=== PATIENT | male | born 2000 | race Two or more races ===

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

== ENCOUNTER 2022-01-19 03:53 | Inpatient (IN) | payer MEDICAID, SELFPAY ==
[2022-01-19 03:55] VITALS: BP 161/84; PULSE 91; RESP 20; TEMP 36.4; O2SAT 98; BMI 25.0
--- NOTE | 2022-01-19 04:10 | W.ED.PSYCHS ---
HPI - Psych General: Chief Complaint: Psychiatric Symptoms Stated Complaint: HI Time Seen by Provider: 01/19/22 04:05 History of Present Illness: 21-year-old male autistic spectrum disorder developmentally delayed patient with a history of schizophrenia. He reports feelings this morning wanting to kill his family because they treat me like garbage there is no specific plan to do so. The patient is here willingly. He denies any current illness. He smiles and laughs on interview. complaint: other Onset (ago): hour(s) Duration: constant History of same: Yes Relieving factors: none Exacerbating factors: none Associated symptoms: Reports homicidal ideation; Deny auditory hallucinations, visual hallucinations or suicidal ideation Review of Systems Const: Denies: fever(s) ENMT: Denies: throat pain Card: Denies: chest pain Resp: Denies: dyspnea, productive cough or non-productive cough GI: Denies: abdominal pain, nausea or vomiting Skin/Breast: Denies: rash Neuro: Denies: headache(s) Psych: Reports: homicidal ideation; Denies: visual hallucinations, auditory hallucinations or suicidal ideation PFS ED PFSH: Medical History ADHD Mild intellectual disability Psychiatric care Psychiatric illness Schizophrenia Surgical History No significant past surgical history Social History Smoking and tobacco status: current every day smoker cigarettes Years cigarettes smoked: 5 [ Other cigarette details: couple cigs once in a while] Quit status (tobacco): has tried quititng Number of times tried to quit tobacco: 8 Second hand smoke exposure: No Smoking risk assessment/counseling performed?: No Alcohol intake: never Desire information about alcohol rehabilitation?: No Counseling given: No Physical Exam Const: GENERAL APPEARANCE: cooperative; not ill appearing and not frail appearing HENMT: COMMON NORMALS: normocephalic and Normal external nose present HEAD & SCALP: normocephalic FACE & SINUS: normal facial exam and face symmetric NOSE: Normal external nose present THROAT: posterior oropharynx normal Eye: COMMON NORMALS: Equal, round and reactive pupils present and EOMs intact bilaterally PUPIL: Yes Equal, round and reactive pupils present Neck/C-Spine: GENERAL: Yes trachea midline Chest: CHEST: Yes Symmetrical chest wall rise Resp: COMMON NORMALS: normal respiratory effort, No use of accessory muscles and clear to auscultation bilaterally AUSCULTATION: clear to auscultation bilaterally Cardio: COMMON NORMALS: regular rate and regular rhythm RATE: regular rate RHYTHM: regular rhythm GI: COMMON NORMALS: Normal to inspection, nondistended, normoactive bowel sounds present, Soft to palpation and non-tender PALPATION: Yes Soft to palpation : COMMON NORMALS: Yes no CVA tenderness BLADDER/KIDNEY EXAM: Yes no CVA tenderness Back/Pelvis: COMMON NORMALS: no CVA tenderness Extremity: COMMON NORMALS: normal to inspection Neuro: TOBIAS COMA SCALE: document GCS findings Tobias coma scale eye opening: Spontaneous [place] coma scale verbal response: Orientated [place] coma scale motor response: Obey commands [place] coma scale total score: 15 Psych: COMMON NORMALS: cooperative and speech normal ATTITUDE: Yes engaged ACTIVITY/MOTOR BEHAVIOR: Yes fidgeting and Yes restless SPEECH: Yes normal speech MOOD & AFFECT: Yes elevated mood Skin: COMMON NORMALS: no wounds Course Consultations: Consultation #1: Juan Time: 05:59 Vital Signs: Vital signs: Vital Signs Temperature 97.5 F L 01/19/22 03:55 Pulse Rate 91 01/19/22 03:55 Respiratory Rate 20 H 01/19/22 03:55 Blood Pressure 161/84 01/19/22 03:55 Pulse Oximetry 98 01/19/22 03:55 [facility] - Psych Medical Decision Making Spoke with psychiatry. The patient is medically stable. Labs are normal. There is no intoxication. Will admit. He will go to the Neuropsych Unit. He is willing to be admitted, and therefore will not be placed under hold. Lab Data : 01/19/22 04:03 01/19/22 04:03 Laboratory Results WBC 6.2 10^3/uL (4.5-13.0) 01/19/22 04:03 RBC 5.29 10^6/uL (4.1-5.3) 01/19/22 04:03 Hgb 15.3 g/dL (11.7-16.6) 01/19/22 04:03 Hct 45.5 % (42.0-52.0) 01/19/22 04:03 MCV 86.0 fl (80-94) 01/19/22 04:03 MCH 28.9 pg (28.0-34.0) 01/19/22 04:03 MCHC 33.6 g/dL (30.0-36.0) 01/19/22 04:03 RDW 11.9 % (12.1-15.1) L 01/19/22 04:03 Plt Count 234 10^3/cmm (130-400) 01/19/22 04:03 MPV 9.7 fL (7.4-10.4) 01/19/22 04:03 Neut % (Auto) 55.8 % 01/19/22 04:03 Lymph % (Auto) 32.0 % 01/19/22 04:03 [place] % (Auto) 9.4 % 01/19/22 04:03 Eos % (Auto) 2.4 % 01/19/22 04:03 Baso % (Auto) 0.2 % 01/19/22 04:03 Neut # (Auto) 3.45 10^3/uL (1.8-8.0) 01/19/22 04:03 Lymph # (Auto) 2.0 10^3/uL (1.5-6.5) 01/19/22 04:03 [place] # (Auto) 0.6 10^3/uL (0.2-0.9) 01/19/22 04:03 Eos # (Auto) 0.2 10^3/uL (0.0-0.8) 01/19/22 04:03 Baso # (Auto) 0.0 10^3/uL (0.0-0.1) 01/19/22 04:03 Nucleated RBC % (auto) 0 % 01/19/22 04:03 Nucleated RBCs # 0.0 /100WBC 01/19/22 04:03 Sodium 139 mmol/L (136-145) 01/19/22 04:03 Potassium 4.0 mmol/L (3.5-5.1) 01/19/22 04:03 Chloride 103 mmol/L (98-107) 01/19/22 04:03 Carbon Dioxide 25 mmol/L (22-29) 01/19/22 04:03 Anion Gap 15.0 (5-19) 01/19/22 04:03 BUN 12 mg/dL (6-20) 01/19/22 04:03 Creatinine 0.8 mg/dL (0.7-1.2) 01/19/22 04:03 GFR Calculation 124.5 mL/min (90-130) 01/19/22 04:03 Glucose 93 mg/dL (65-115) 01/19/22 04:03 Calculated Osmolality 287 mOsm/kg (285-295) 01/19/22 04:03 Calcium 9.4 mg/dL (8.5-10.5) 01/19/22 04:03 Total Bilirubin 0.6 mg/dL (0.15-1.2) 01/19/22 04:03 AST 19 U/L (0-40) 01/19/22 04:03 ALT 11 U/L (0-41) 01/19/22 04:03 Alkaline Phosphatase 79 U/L (40-130) 01/19/22 04:03 Total Protein 7.8 g/dL (6.6-8.7) 01/19/22 04:03 Albumin 5.0 g/dL (3.5-5.2) 01/19/22 04:03 Globulin 2.8 g/dL (1.3-4.6) 01/19/22 04:03 Urine Color Yellow (Yellow) 01/19/22 04:03 Urine Appearance Clear (CLEAR) 01/19/22 04:03 Urine pH 5 (5-7) 01/19/22 04:03 Ur Specific [place] 1.025 (1.005-1.030) 01/19/22 04:03 Urine Protein 1+ (Negative) H 01/19/22 04:03 Urine Glucose (UA) Norm (Normal) 01/19/22 04:03 Urine Ketones 1+ (Negative) H 01/19/22 04:03 Urine Blood Neg (Negative) 01/19/22 04:03 Urine Nitrate Negative (Negative) 01/19/22 04:03 Urine Bilirubin Neg (Negative) 01/19/22 04:03 Urine Urobilinogen 1 mg/dL (Negative) H 01/19/22 04:03 Ur Leukocyte Esterase Negative (Negative) 01/19/22 04:03 Urine RBC 0-4 /hpf (0-2) H 01/19/22 04:03 Urine WBC 0-4 /hpf (0-5) H 01/19/22 04:03 Ur Squamous Epith Cells 0-4 /hpf (0-5) H 01/19/22 04:03 Amorphous Sediment Not Reportable 01/19/22 04:03 Urine Bacteria Trace /hpf (NONE) 01/19/22 04:03 Urine Mucus 3+ /hpf 01/19/22 04:03 Salicylates < 0.3 mg/dL (3-10) L 01/19/22 04:03 Urine Opiates Screen Negative ng/mL (Negative) 01/19/22 04:03 Acetaminophen < 5.0 ug/mL (10-30) L 01/19/22 04:03 Ur Barbiturates Screen Negative ng/mL (Negative) 01/19/22 04:03 Ur Phencyclidine Scrn Negative ng/mL (Negative) 01/19/22 04:03 Ur Amphetamines Screen Negative ng/mL (Negative) 01/19/22 04:03 U Benzodiazepines Scrn Negative ng/mL (Negative) 01/19/22 04:03 Urine Cocaine Screen Negative ng/mL (Negative) 01/19/22 04:03 U Marijuana (THC) Screen Positive ng/mL (Negative) H 01/19/22 04:03 Ethyl Alcohol < 10 mg/dL (0-10) 01/19/22 04:03 Discharge Plan Discharge Patient Disposition: Admitted As Inpatient Clinical Impression: Homicidal ideation Condition: Stable Coding Level of Care Code ED Director Of Automation for Robert Cheema Exam Comprehensive
[2022-01-19 04:15] LABS: Basophils % 0.2 %; Eosinophils # 0.2 10^3/uL (0.0-0.8); Eosinophils % 2.4 %; Hematocrit 45.5 % (42.0-52.0); Hemoglobin 15.3 g/dL (11.7-16.6); Mean Corpuscular HGB Conc 33.6 g/dL (30.0-36.0); Mean Corpuscular Hemoglobin 28.9 pg (28.0-34.0); Mean Platelet Volume 9.7 fL (7.4-10.4); Monocytes # 0.6 10^3/uL (0.2-0.9); Monocytes % 9.4 %; Neutrophils # 3.45 10^3/uL (1.8-8.0); Neutrophils % 55.8 %; Nucleated Red Blood Cells % 0 %; Platelet Count 234 10^3/cmm (130-400); Red Blood Count 5.29 10^6/uL (4.1-5.3); Red Cell Distribution Width 11.9 % (12.1-15.1); White Blood Count 6.2 10^3/uL (4.5-13.0)
[2022-01-19 04:33] LABS: Acetaminophen < 5.0 ug/mL (10-30); Alanine Aminotransferase 11 U/L (0-41); Alcohol Level < 10 mg/dL (0-10); Alkaline Phosphatase 79 U/L (40-130); Aspartate Amino Transferase 19 U/L (0-40); Blood Urea Nitrogen 12 mg/dL (6-20); Calcium 9.4 mg/dL (8.5-10.5); Carbon Dioxide 25 mmol/L (22-29); Chloride 103 mmol/L (98-107); Globulin 2.8 g/dL (1.3-4.6); Glomerular Filtration Rate 124.5 mL/min (90-130); Glucose 93 mg/dL (65-115); Osmolality Calculated 287 mOsm/kg (285-295); Salicylate < 0.3 mg/dL (3-10); Sodium 139 mmol/L (136-145); Total Bilirubin 0.6 mg/dL (0.15-1.2); Total Protein 7.8 g/dL (6.6-8.7)
[2022-01-19 04:36] LABS: Add Urine Microscopic? YES; Bilirubin Urine Neg (Negative); Blood Urine Neg (Negative); Glucose Urine UA Norm (Normal); Ketones Urine 1+ (Negative); Leukocyte Esterase Urine Negative (Negative); Nitrate Urine Negative (Negative); Protein Urine 1+ (Negative); Specific Gravity, Urine 1.025 (1.005-1.030); Urine Appearance Clear (CLEAR); Urine Color Yellow (Yellow); Urobilinogen Urine 1 mg/dL (Negative); pH Urine 5 (5-7)
[2022-01-19 04:37] LABS: Add Urine Culture? No; Bacteria Urine TRACE /hpf; Mucus Urine 3+ /hpf; RBC Urine 0-4 /hpf (0-2); Squamous Epithelial Cell Urine 0-4 /hpf (0-5); WBC Urine 0-4 /hpf (0-5)
[2022-01-19 04:38] LABS: Amphetamines Screen Urine Negative (Negative); Barbiturates Screen Urine Negative (Negative); Benzodiazepines Screen Urine Negative (Negative); Cocaine Screen Urine Negative (Negative); Opiate Screen Urine Negative (Negative); PCP Screen Urine Negative (Negative); THC Screen Urine Positive (Negative)
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
[2022-01-19 07:30] VITALS: BP 129/74; PULSE 82; RESP 18; TEMP 36.6; O2SAT 96
--- NOTE | 2022-01-19 08:17 | PC.NURSE ---
Admission Assessment Patient presents with anxiety, frequently swinging his arms throughout assessment. Patient was calm, cooperative, and eager to talk. He states he is here because he had thoughts of killing his family because they are, mean to me and really rude. Patient denies any auditory or visual hallucinations at this time. He also denies any suicidal ideation. Patient states he drank alcohol once at 18, but has never drank any alcohol since then. He does admit to using marijuana currently on a daily basis. When asked how much he used daily he said, I don't know how much, but it's a lot! Patient also currently uses tobacco and states he smokes about one pack daily. Patient did say he felt anxious this morning, but didn't want to take any medications to help alleviate his symptoms. He states he still wants to kill his family and appears very emotional when speaking about it. Patient states he had a bowel movement yesterday. Patient has small rash on the knuckles of his left hand.
[2022-01-19] MEDS: ARIPiprazole 30 mg Tablet 15 MG PO (08:38)
[2022-01-19 14:00] VITALS: BP 119/68; PULSE 71; RESP 16; TEMP 36.7; O2SAT 96
[2022-01-19 20:07] VITALS: BP 140/82; PULSE 77; RESP 17; TEMP 36.4; O2SAT 96
[2022-01-19] MEDS: hyDROXYzine 25 mg Capsule 50 MG PO (21:12)
[2022-01-19] MEDS: trazodone 50 mg Tablet PO (21:13)
[2022-01-20 06:00] VITALS: BP 124/82; PULSE 80; RESP 16; TEMP 36.5; O2SAT 96
[2022-01-20] MEDS: ARIPiprazole 30 mg Tablet 15 MG PO (08:10)
[2022-01-20 14:00] VITALS: BP 132/70; PULSE 75; RESP 16; TEMP 36.9; O2SAT 95
[2022-01-20] MEDS: nicotine 2 mg Gum BUCCAL (16:08)
--- NOTE | 2022-01-20 17:03 | P.NPUPN_ITS ---
Subjective NPU Subjective: Patient presents today essentially unchanged and seen frolicking in the hallways. He continues reportedly has not spoken to his parents again referencing that they are mean to me. We discussed the fact that this seems to be more of a family dispute and that is unlikely make medication changes and also there are no alternative living arrangements that are available. We will work with the treatment team and his family possible discharge in the next 48 hours. Mental Status Exam MSE Comments: This is a slender olive skinned male in hospital scrubs with adequate grooming and eye contact. No abnormal movements except for mild psychomotor agitation. Cooperative with exam in no acute distress. Speech was normal rate and volume, with a mild speech impediment with R's, and some limited prosody and childlike delivery. Mood described as fine, affect congruent. Thought process organized. Thought contact: patient denies suicidal or homicidal ideation, there were no delusions reported or noted, patient denied auditory or visual hallucinations. Attention and concentration appeared intact and memory appeared unreliable but none were formally tested. Patient is alert and oriented times three. Insight and judgment appear limited versus impaired and impulse control appears limited.? Intellectual ability appears limited versus impaired. Vitals/I&O/Wt Last Vital Signs Temp 98.4 F 01/20/22 14:00 Pulse 75 01/20/22 14:00 Resp 16 01/20/22 14:00 BP 132/70 01/20/22 14:00 Pulse Ox 95 01/20/22 14:00 O2 Del Method 01/20/22 14:00 Weight last 48 hrs Weight 72.575 kg Data NPU : 01/19/22 04:03 01/19/22 04:03 A&P Assessment and plan (1) Homicidal ideation: Status: Acute (2) ADHD: Status: Acute (3) Mild intellectual disability: Status: Acute (4) Borderline intellectual functioning: Status: Acute (5) Autism spectrum disorder: Status: Acute (6) alcohol syndrome: Status: Acute Plan This is a 21-year-old male with a long history of alcohol syndrome intellectual difficulties, impulsivity and struggling to accept his lack of independence presents with reports of homicidal ideation but now appearing essentially stable. 1. Continue current medication. We will evaluate for need for changes. 2. Continue every 15 minute checks for safety. 3. Encourage individual, group milieu therapy. 4. We will work with family for appropriate discharge plans. Likely to be a short stay. Involuntary Hold Information 96 Hour Hold: 96 Hour Involuntary Admission: No 96 Hour Hold Ending Date: 09/02/21 96 Hour Hold Ending Time: 00:45 Attestations NPU Medical Necessity Statement*: Inpatient hospitalization is medically necessary and the clinically appropriate intervention at this time.? We will monitor medications and make changes as indicated. Likely likely stay 1-3 days. Coding Level of Care Code Acute Furnace Charging Machine Operator for g Fwd Diagnoses Homicidal ideation R45.850 ADHD F90.9 Mild intellectual disability F70 Borderline intellectual functioning R41.83 Autism spectrum disorder F84.0 alcohol syndrome Q86.0
[2022-01-20 20:03] VITALS: BP 112/63; PULSE 65; RESP 16; TEMP 36.8; O2SAT 98
[2022-01-21 06:00] VITALS: BP 119/80; PULSE 74; RESP 16; TEMP 36.7; O2SAT 99
[2022-01-21] MEDS: ARIPiprazole 30 mg Tablet 15 MG PO (08:04)
[2022-01-21 14:00] VITALS: BP 114/62; PULSE 70; RESP 18; TEMP 36.9; O2SAT 97
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
[2022-01-21 15:53] VITALS: BP 114/62; PULSE 70; RESP 18; TEMP 36.9; O2SAT 97
== END 2022-01-21 16:34 | disposition home or self-care (01) | DRG 884 ==
LOC: ER 06:00 → NP 06:09
PROVIDERS: Admitting Provider Psychiatry & Neurology Psychiatry; Emergency Provider Emergency Medicine; Visit Provider Psychiatry & Neurology Psychiatry
DX: F84.0 Autistic disorder (principal); F70 Mild intellectual disabilities; R45.850 Homicidal ideations; F90.9 Attention-deficit hyperactivity disorder, unspecified type; Q86.0 Fetal alcohol syndrome (dysmorphic); F17.210 Nicotine dependence, cigarettes, uncomplicated
CPT/HCPCS: 80053; 80306; 80307; 81001; 85025; 97150; 97165; 99285

== ENCOUNTER → 2022-08-21 09:02 | Outpatient (BNVA) | payer MEDICAID, SELFPAY | PROVIDERS: PCP Family Medicine; Visit Provider Podiatrist Foot & Ankle Surgery | DX: L60.0 Ingrowing nail (principal) | CPT/HCPCS: 11730; 99203 ==

== ENCOUNTER 2022-09-28 06:27 | Emergency (ER) | payer MEDICAID, SELFPAY ==
[2022-09-28 06:27] VITALS: BP 162/97; PULSE 91; RESP 22; O2SAT 98; BMI 22.0
--- NOTE | 2022-09-28 06:36 | XRR_ITS ---
PROCEDURE INFORMATION: Exam: XR Chest Exam date and time: 09/28/2022 6:52 AM Age: 22 years old Clinical indication: Cough and dyspnea; Additional info: Dyspnea/cough TECHNIQUE: Imaging protocol: Radiologic exam of the chest. Views: 1 view. COMPARISON: CR XR shoulder LT min 2V* [id number] 08/16/2021 3:32 PM FINDINGS: Lungs: Lungs are well aerated without a focal area of consolidation. Pleural spaces: Unremarkable. No pleural effusion. No pneumothorax. Heart/Mediastinum: Unremarkable. No cardiomegaly. Bones/joints: Unremarkable. XR/XR chest 1V portable [id number] IMPRESSION: Lungs are well aerated without a focal area of consolidation.
--- NOTE | 2022-09-28 06:36 | ECG_ITS ---
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 Measurements Intervals [place] Rate: 91 P: 73 AL: 148 QRS: 80 QRSD: 97 T: 58 QT: 330 QTc: 407 Interpretive Statements SINUS RHYTHM WITH SINUS ARRHYTHMIA No previous ECG available for comparison Electronically Signed On 09-28-2022 12:34:48 CDT by Wang Salazar M.D. [id number]
[2022-09-28 06:46] VITALS: RESP 18
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
--- NOTE | 2022-09-28 13:12 | PC.NURSE ---
Assumed care of patient at 1300.
== END 2022-09-28 13:29 | disposition home or self-care (01) ==
PROVIDERS: Emergency Provider Family Medicine; PCP Family Medicine
DX: S29.9XXA Unspecified injury of thorax, initial encounter (principal); Y04.2XXA Assault by strike against or bumped into by another person, initial encounter; F90.9 Attention-deficit hyperactivity disorder, unspecified type; F84.0 Autistic disorder; F70 Mild intellectual disabilities; F17.210 Nicotine dependence, cigarettes, uncomplicated
CPT/HCPCS: 71045; 93005; 99284

== ENCOUNTER 2022-09-29 07:26 | Emergency (ER) | payer MEDICAID, SELFPAY ==
[2022-09-29 07:29] VITALS: BP 160/91; PULSE 85; RESP 16; O2SAT 96; BMI 25.0
[2022-09-29 07:40] VITALS: TEMP 36.6
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
[2022-09-29 08:23] LABS: Amphetamines Screen Urine Negative (Negative); Barbiturates Screen Urine Negative (Negative); Benzodiazepines Screen Urine Negative (Negative); Cocaine Screen Urine Negative (Negative); Opiate Screen Urine Negative (Negative); PCP Screen Urine Negative (Negative); THC Screen Urine Positive (Negative)
[2022-09-29 09:19] VITALS: BP 130/75; PULSE 72; RESP 16; O2SAT 97
[2022-09-29] MEDS: ARIPiprazole Maintena 400 MG IM (09:38)
[2022-09-29 09:48] VITALS: RESP 16; O2SAT 97
== END 2022-09-29 09:49 | disposition home or self-care (01) ==
PROVIDERS: Emergency Provider Family Medicine; PCP Family Medicine
DX: F84.0 Autistic disorder (principal); R41.83 Borderline intellectual functioning; F17.210 Nicotine dependence, cigarettes, uncomplicated
CPT/HCPCS: 80306; 96372; 99284

== ENCOUNTER 2022-09-30 14:35 | Emergency (ER) | payer MEDICAID, SELFPAY ==
[2022-09-30 14:38] VITALS: BMI 24.3
[2022-09-30 14:41] VITALS: BP 159/79; PULSE 86; RESP 18; O2SAT 96
[2022-09-30 14:45] VITALS: TEMP 36.7
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
--- NOTE | 2022-09-30 17:24 | PC.NURSE ---
MOTHER PRESENTED TO ER, WHEN INSTRUCTED THAT PATIENTS WOULD BE DISCHARGE MOTHER STATED THAT SHE WOULD NOT BE TAKING THEM DUE TO CIRCUMSTANCES. PROVIDER NOTIFIED. PROVIDER INFORMED MOTHER THAT RESOURCES ARE NOT AVAILABLE FOR LONG TO TERM CARE PLACEMENT. MOTHER WENT TO WAITING ROOM TO WAIT FOR TRANSPORT HELP.
--- NOTE | 2022-09-30 18:13 | PC.NURSE ---
PATIENTS HAVE BEEN MEDICALLY CLEARED BY BOTH DR SLATER AND DR BARTON. PATIENTS ARE READY FOR DISCHARGE. DISCUSSION WITH MOTHER AND MOTHER REFUSES TO TAKE PATIENTS. SECURITY, INDIVIDUAL PENSION CONSULTANT, AND AOC CALLED. HEAD OF SECURITY AND HOUSE SUP SPOKE WITH BOTH PATIENT AND PATIENT MOTHER.
== END 2022-09-30 18:46 | disposition home or self-care (01) ==
PROVIDERS: Emergency Provider Family Medicine; PCP Family Medicine
DX: F84.0 Autistic disorder (principal); F90.9 Attention-deficit hyperactivity disorder, unspecified type; Q86.0 Fetal alcohol syndrome (dysmorphic); F17.210 Nicotine dependence, cigarettes, uncomplicated
CPT/HCPCS: 99284; 99285

== ENCOUNTER → 2022-10-31 11:59 | Outpatient (BNVA) | payer MEDICAID, SELFPAY | PROVIDERS: PCP Family Medicine; Visit Provider Nurse Practitioner | DX: Z79.899 Other long term (current) drug therapy (principal) | CPT/HCPCS: 80061; 83036 ==

== ENCOUNTER → 2022-11-27 15:36 | Outpatient (BNVA) | payer MEDICAID, SELFPAY | PROVIDERS: PCP Family Medicine; Visit Provider Nurse Practitioner | DX: F20.9 Schizophrenia, unspecified (principal); R82.5 Elevated urine levels of drugs, medicaments and biological substances | CPT/HCPCS: 80306 ==

== ENCOUNTER 2023-03-04 12:27 | Emergency (ER) | payer MEDICAID, SELFPAY ==
--- NOTE | 2023-03-04 12:49 | ECG_ITS ---
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 Measurements Intervals [place] Rate: 91 P: 67 [place]: 159 QRS: 73 QRSD: 93 T: 41 QT: 333 QTc: 410 Interpretive Statements SINUS RHYTHM ST ELEVATION, PROBABLY EARLY REPOLARIZATION [ST ELEVATION WITH NORMALLY INFLECTED T-WAVE] Compared to ECG 09/28/2022 06:39:46 ST (T wave) deviation now present Early repolarization now present Sinus arrhythmia no longer present Electronically Signed On 03-04-2023 19:07:31 CDT by Wang Salazar M.D. [email or web address] [id number]
--- NOTE | 2023-03-04 12:50 | W.ED.PSYCHS ---
HPI - Psych General: Chief Complaint: Psychiatric Symptoms Stated Complaint: SI Time Seen by Provider: 03/04/23 12:32 History of Present Illness: 22-year-old male with a history of ADHD, autism spectrum disorder, mild intellectual disability, bipolar disorder, and a reported history of schizophrenia who is maintained on Abilify injections once monthly who presents with police for reported suicidal ideation. He reportedly left his parents home where he lives and walked half a mile to a mile away. His parents did note that he left and reported him to the police. Right around that time, right around that time, right around that time, they found the patient and that is when he told them he was feeling suicidal for a few weeks. He feels like his Abilify does not work anymore. He reports that he was going to use a box toe stitcher to make some gtz on the back side of his right forearm. He has a few very small scars from doing this in the past as well. He denies any history of lethal attempts. He is not endorsing hallucinations or HI. Associated symptoms: Deny delusions Review of Systems General: Reports: 10 or more systems reviewed and unremarkable except in HPI and below Const: Denies: fever(s), chills or body aches Eyes: Denies: change in vision ENMT: Denies: throat pain Card: Denies: chest pain, edema or syncope Resp: Denies: dyspnea or productive cough GI: Denies: abdominal pain, nausea, vomiting or diarrhea : Denies: flank pain, dysuria or urinary frequency Musc: Denies: neck pain, back pain, extremity pain or extremity swelling Skin/Breast: Denies: rash or erythema Neuro: Denies: headache(s), numbness in extremities, weakness in extremities, lack of coordination or difficulty walking PFS ED PFSH: Medical History ADHD Mild intellectual disability Psychiatric care Psychiatric illness Schizophrenia Surgical History No significant past surgical history Social History (Updated 02/24/23 @ 09:49 by Shey Jack LPN) Smoking and tobacco/nicotine status: former use of tobacco/nicotine Quit status (tobacco/nicotine): has tried quititng Number of times tried to quit tobacco: 8 Second hand smoke exposure: No Alcohol intake: never Substance/Drug Use: unknown Caregiver/support person: Yes Lives independently: No Physical Exam Const: COMMON NORMALS: no limitations, alert and well nourished EXAM LIMITATIONS: no altered mental status GENERAL APPEARANCE: well kempt HENMT: COMMON NORMALS: normocephalic, atraumatic and external ears normal HEAD & SCALP: normocephalic and atraumatic EXTERNAL EAR: Yes external ears normal MOUTH: no muffled voice Eye: COMMON NORMALS: EOMs intact bilaterally, conjunctivae normal and no scleral icterus CONJUNCTIVA: Yes conjunctivae normal Neck/C-Spine: COMMON NORMALS: no JVD GENERAL: Yes normal visual inspection and Yes trachea midline Resp: COMMON NORMALS: normal respiratory effort, No use of accessory muscles and clear to auscultation bilaterally AUSCULTATION: clear to auscultation bilaterally Cardio: COMMON NORMALS: no JVD, regular rate and regular rhythm RATE: regular rate RHYTHM: regular rhythm GI: COMMON NORMALS: Soft to palpation and non-tender PALPATION: Yes Soft to palpation and No Guarding due to palpation present (GI) Extremity: COMMON NORMALS: normal to inspection Neuro: COMMON NORMALS: moves all extremities, no focal motor deficits and no sensory deficits noted SENSORIUM/ORIENTATION: Yes alert SPEECH: speech normal Psych: COMMON NORMALS: cooperative and speech normal APPEARANCE: Yes grossly normal and Yes well kempt ATTITUDE: Yes calm and Yes engaged ACTIVITY/MOTOR BEHAVIOR: Yes appropriate eye contact, No psychomotor agitation, No fidgeting and No hyperactivity SPEECH: Yes normal speech MOOD & AFFECT: Yes euthymic mood THOUGHT PROCESS: no flight of ideas, logical, normal association, not perseverating and No Word salad present (speech) THOUGHT CONTENT: Yes Suicidality present, No Homicidality present, No Phobia(s) present, No delusions, No Hallucination(s) present, No Ideas of reference present (thought content), No Derealization present, No Depersonalization present, No rumination(s) and No Obsession(s) present ATTENTION/CONCENTRATION: Yes attention grossly intact MEMORY/COGNITION: Yes memory grossly impaired and Yes cognition grossly impaired Skin: COMMON NORMALS: no rashes or lesions noted, turgor normal and no jaundice GENERAL SKIN EXAM: no rashes or lesions noted and turgor normal Course Vital Signs: Vital signs: Vital Signs Temperature 98.3 F 03/04/23 13:06 Pulse Rate 100 03/04/23 13:06 Respiratory Rate 18 03/04/23 13:06 Blood Pressure 154/89 03/04/23 13:06 Pulse Oximetry 100 03/04/23 13:06 Oxygen Delivery Me thod Room Air 03/04/23 13:06 MDM - Psych Medical Decision Making 22-year-old male reporting several weeks of feeling suicidal stating that his Abilify does not seem to be working. Today he reportedly had access to a box toe stitcher. He reports he was going to make some scratches on his arm but then thought better of it and threw it. He lives with his parents. I am told his father is his guardian. I am going to be reaching out for collateral information from father if he does not show up here in the next few minutes. Update 1400 Patient's medical clearance was performed. I spoke with the patient's father. He was on a business call when the patient's twin brother informed him that Lester had walked out the door. He had been gone for about 15 minutes. This is not terribly unusual and has happened several times through the years. Nobody ever saw a box knife. He was not agitated or in any sort of fight when he left. Patient has never had a lethal suicide attempt. He appears to be at his baseline and has been very calm and cooperative without any medication here. I spoke with Dr. Barrett, psychiatrist. He believes that the patient's Abilify dose probably is too low for him. He recommends starting a 5 mg daily supplementation dose. The patient is already plugged into the behavioral health program and crisis program here. Father would like to take him home as he does not feel he is imminent risk to himself or others. Father is guardian. Will d/c with abilify 5mg oral daily supplement and he will f/u outpatient. Lab Data 03/04/23 13:11 03/04/23 13:11 Laboratory Results WBC 12.94 10^3/uL (4.5-13.0) 03/04/23 13:11 RBC 5.53 10^6/uL (3.85-5.65) 03/04/23 13:11 Hgb 15.70 g/dL (13.2-15.6) H 03/04/23 13:11 Hct 47.0 % (37-53) 03/04/23 13:11 MCV 85.0 fl (82-101) 03/04/23 13:11 MCH 28.4 pg (27-33) 03/04/23 13:11 MCHC 33.4 g/dL (30-55) 03/04/23 13:11 RDW 12.4 % (12.1-15.1) 03/04/23 13:11 Plt Count 267 10^3/cmm (157-399) 03/04/23 13:11 MPV 10.1 fL (7.4-10.4) 03/04/23 13:11 Neut % (Auto) 85.3 % 03/04/23 13:11 Lymph % (Auto) 8.2 % 03/04/23 13:11 Ross % (Auto) 5.8 % 03/04/23 13:11 Eos % (Auto) 0.1 % 03/04/23 13:11 Baso % (Auto) 0.1 % 03/04/23 13:11 Neut # (Auto) 11.05 10^3/uL (1.8-8.0) H 03/04/23 13:11 Lymph # (Auto) 1.1 10^3/uL (1.5-6.5) L 03/04/23 13:11 Ross # (Auto) 0.8 10^3/uL (0.2-0.9) 03/04/23 13:11 Eos # (Auto) 0.0 10^3/uL (0.0-0.8) 03/04/23 13:11 Baso # (Auto) 0.0 10^3/uL (0.0-0.1) 03/04/23 13:11 Nucleated RBC % (auto) 0 % 03/04/23 13:11 Nucleated RBCs # 0.0 /100WBC 03/04/23 13:11 Sodium 141 mmol/L (136-145) 03/04/23 13:11 Potassium 4.0 mmol/L (3.5-5.1) 03/04/23 13:11 Chloride 104 mmol/L (98-107) 03/04/23 13:11 Carbon Dioxide 23 mmol/L (22-29) 03/04/23 13:11 Anion Gap 18.0 (5-19) 03/04/23 13:11 BUN 12 mg/dL (6-20) 03/04/23 13:11 Creatinine 0.8 mg/dL (0.7-1.2) 03/04/23 13:11 GFR Calculation 123.2 mL/min (90-130) 03/04/23 13:11 Glucose 96 mg/dL (65-115) 03/04/23 13:11 Calculated Osmolality 292 mOsm/kg (285-295) 03/04/23 13:11 Calcium 10.2 mg/dL (8.5-10.5) 03/04/23 13:11 Total Bilirubin 0.6 mg/dL (0.15-1.2) 03/04/23 13:11 AST 20 U/L (0-40) 03/04/23 13:11 ALT 16 U/L (0-41) 03/04/23 13:11 Alkaline Phosphatase 95 U/L (40-130) 03/04/23 13:11 Total Protein 8.6 g/dL (6.6-8.7) 03/04/23 13:11 Albumin 5.6 g/dL (3.5-5.2) H 03/04/23 13:11 Globulin 3.0 g/dL (1.3-4.6) 03/04/23 13:11 Salicylates 1.6 mg/dL (3-10) L 03/04/23 13:11 Urine Opiates Screen Negative ng/mL (Negative) 03/04/23 13:20 Acetaminophen < 5.0 ug/mL (10-30) L 03/04/23 13:11 Ur Barbiturates Screen Negative ng/mL (Negative) 03/04/23 13:20 Ur Phencyclidine Scrn Negative ng/mL (Negative) 03/04/23 13:20 Ur Amphetamines Screen Negative ng/mL (Negative) 03/04/23 13:20 U Benzodiazepines Scrn Negative ng/mL (Negative) 03/04/23 13:20 Urine Cocaine Screen Negative ng/mL (Negative) 03/04/23 13:20 U Marijuana (THC) Screen Positive ng/mL (Negative) H 03/04/23 13:20 Ethyl Alcohol < 10 mg/dL (0-10) 03/04/23 13:11 No radiology studies performed this visit Discharge Plan Discharge Patient Disposition: Home Clinical Impression: Suicidal thoughts, Encounter for medication adjustment Condition: Stable Prescriptions: New Abilify 5 mg tablet 5 mg PO DAILY 7 Days Qty: 30 2RF No Action Abilify Maintena 400 mg suspension,extended rel recon 400 mg IM Q28D Qty: 1 3RF Discharge Orders: Discharge ED (Routine); Ordered 03/04/23 Ordered By: Rell Rooney Referrals: Shravan Bates DO [Primary Care Provider] - 2 weeks (Added 5mg of abilify orally as supplement to IM--f/u see how he's doing) Discharge Diet: Usual diet Discharge Activity: Resume usual activity Patient Instructions: Help Prevent Suicide (ED), Suicide Prevention (ED) Activity Restrictions/Additional Instructions: Return to ER or call 911 if Lester seems to be a danger to himself or others. Coding Level of Care Code ED Product Introduction Manager for Robert Cheema
[2023-03-04 13:06] VITALS: BP 154/89; PULSE 100; RESP 18; TEMP 36.8; O2SAT 100; BMI 25.0
[2023-03-04 13:25] LABS: Basophils % 0.1 %; Eosinophils % 0.1 %; Lymphocytes # 1.1 10^3/uL (1.5-6.5); Lymphocytes % 8.2 %; Mean Corpuscular HGB Conc 33.4 g/dL (30-55); Mean Corpuscular Hemoglobin 28.4 pg (27-33); Mean Platelet Volume 10.1 fL (7.4-10.4); Monocytes # 0.8 10^3/uL (0.2-0.9); Monocytes % 5.8 %; Neutrophils # 11.05 10^3/uL (1.8-8.0); Neutrophils % 85.3 %; Nucleated Red Blood Cells % 0 %; Platelet Count 267 10^3/cmm (157-399); Red Blood Count 5.53 10^6/uL (3.85-5.65); Red Cell Distribution Width 12.4 % (12.1-15.1); White Blood Count 12.94 10^3/uL (4.5-13.0)
[2023-03-04 13:51] LABS: Amphetamines Screen Urine Negative (Negative); Barbiturates Screen Urine Negative (Negative); Benzodiazepines Screen Urine Negative (Negative); Cocaine Screen Urine Negative (Negative); Opiate Screen Urine Negative (Negative); PCP Screen Urine Negative (Negative); THC Screen Urine Positive (Negative)
[2023-03-04 14:03] LABS: Alanine Aminotransferase 16 U/L (0-41); Albumin Level 5.6 g/dL (3.5-5.2); Alkaline Phosphatase 95 U/L (40-130); Aspartate Amino Transferase 20 U/L (0-40); Blood Urea Nitrogen 12 mg/dL (6-20); Calcium 10.2 mg/dL (8.5-10.5); Carbon Dioxide 23 mmol/L (22-29); Chloride 104 mmol/L (98-107); Glomerular Filtration Rate 123.2 mL/min (90-130); Glucose 96 mg/dL (65-115); Osmolality Calculated 292 mOsm/kg (285-295); Salicylate 1.6 mg/dL (3-10); Sodium 141 mmol/L (136-145); Total Bilirubin 0.6 mg/dL (0.15-1.2); Total Protein 8.6 g/dL (6.6-8.7)
[2023-03-04 14:04] LABS: Acetaminophen < 5.0 ug/mL (10-30); Alcohol Level < 10 mg/dL (0-10)
== END 2023-03-04 14:45 | disposition home or self-care (01) ==
PROVIDERS: Emergency Provider Emergency Medicine; PCP Family Medicine
DX: R45.851 Suicidal ideations (principal); Z87.891 Personal history of nicotine dependence
CPT/HCPCS: 80053; 80306; 80307; 85025; 93005; 99284

== ENCOUNTER 2023-10-02 16:57 | Emergency (ER) | payer MEDICAID, SELFPAY ==
[2023-10-02 16:58] VITALS: BP 149/87; PULSE 106; TEMP 37.2; O2SAT 96
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
[2023-10-02 19:52] VITALS: BP 138/86; PULSE 98; RESP 16; TEMP 37.2; O2SAT 98
== END 2023-10-02 19:53 | disposition home or self-care (01) ==
PROVIDERS: Emergency Provider Emergency Medicine; PCP Family Medicine
DX: S00.83XA Contusion of other part of head, initial encounter (principal); Z87.891 Personal history of nicotine dependence; Y04.2XXA Assault by strike against or bumped into by another person, initial encounter
CPT/HCPCS: 70450; 70486; 99284

== ENCOUNTER → 2023-11-05 09:49 | Outpatient (BNVA) | payer OTHER, SELFPAY | PROVIDERS: PCP Family Medicine; Visit Provider Nurse Practitioner Psychiatric/Mental Health | DX: F20.9 Schizophrenia, unspecified (principal); Z79.899 Other long term (current) drug therapy; R41.83 Borderline intellectual functioning; Q86.0 Fetal alcohol syndrome (dysmorphic); F84.0 Autistic disorder | CPT/HCPCS: 80061; 83036 ==

== ENCOUNTER 2024-04-21 23:00 | Emergency (ER) | payer MEDICAID, SELFPAY ==
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
[2024-04-22 00:45] VITALS: BP 144/85; PULSE 102; RESP 18; TEMP 36.8; O2SAT 95; BMI 24.3
[2024-04-22 02:52] VITALS: BP 131/82; PULSE 89; RESP 16; O2SAT 97
== END 2024-04-22 02:53 | disposition home or self-care (01) ==
PROVIDERS: Emergency Provider Emergency Medicine
DX: F84.0 Autistic disorder (principal); F70 Mild intellectual disabilities; Z87.891 Personal history of nicotine dependence
CPT/HCPCS: 99283

== ENCOUNTER → 2024-11-08 10:11 | Outpatient (BNVA) | payer SELFPAY | PROVIDERS: Visit Provider Nurse Practitioner Psychiatric/Mental Health | DX: Z79.899 Other long term (current) drug therapy (principal) | CPT/HCPCS: 80053; 80061; 83036 ==

== ENCOUNTER → 2025-04-07 10:59 | Outpatient (BNVA) | payer SELFPAY | PROVIDERS: Visit Provider Nurse Practitioner Psychiatric/Mental Health | DX: Z51.81 Encounter for therapeutic drug level monitoring (principal) | CPT/HCPCS: 80164 ==

== ENCOUNTER → 2025-04-14 10:16 | Outpatient (BNVA) | payer MEDICAID, SELFPAY | PROVIDERS: PCP Family Medicine; Visit Provider Family Medicine | DX: Z11.1 Encounter for screening for respiratory tuberculosis (principal) | CPT/HCPCS: 86480 ==